=== PATIENT | female | born 1955 | race American Indian/Alaskan Native ===

== ENCOUNTER 2018-09-04 10:00 | Outpatient (CLI) | payer OTHER | END 2018-09-04 23:27 | disposition home or self-care (01) | LOC: RAD 10:00 | DX: M85.89 Other specified disorders of bone density and structure, multiple sites (principal) ==

== ENCOUNTER 2020-12-24 08:46 | Outpatient (CLI) | payer OTHER | END 2020-12-24 19:32 | disposition home or self-care (01) | LOC: RAD 08:46 | PROVIDERS: ATTEND Nurse Practitioner Family | DX: H16.223 Keratoconjunctivitis sicca, not specified as Sjogren's, bilateral (principal); Z79.899 Other long term (current) drug therapy; K11.7 Disturbances of salivary secretion; M05.79 Rheumatoid arthritis with rheumatoid factor of multiple sites without organ or systems involvement; M81.0 Age-related osteoporosis without current pathological fracture ==